=== PATIENT | male | born 1975 | race Caucasian/White ===

== ENCOUNTER → 2016-12-04 | Outpatient (CLI) | payer BC, OTHER | LOC: M SMT 15:49 | PROVIDERS: ATTEND Urology | DX: E29.1 Testicular hypofunction (principal) ==

== ENCOUNTER → 2017-03-29 | Outpatient (CLI) | payer BC, OTHER | LOC: M LAB 16:11 | PROVIDERS: ATTEND Urology | DX: E29.1 Testicular hypofunction (principal) ==

== ENCOUNTER → 2017-11-02 | Outpatient (CLI) | payer BC, OTHER ==
[2017-11-02 13:33] LABS: HEMATOCRIT 45.9 % (42.0-52.0); HEMOGLOBIN 15.9 g/dl (14.0-18.0); MEAN CORPUSCULAR HEMOGLOBIN 31.2 pg (27.0-33.0); MEAN CORPUSCULAR HGB CONC 34.6 g/dl (32.0-36.5); PLATELET COUNT, AUTOMATED 242 10^3/uL (150-450); RED CELL DISTRIBUTION WIDTH 12.2 % (11.5-14.5); WHITE BLOOD COUNT 4.7 10^3/uL (4.0-10.0)
[2017-11-02 14:00] LABS: ALBUMIN 4.5 GM/DL (3.2-5.2); ALBUMIN/GLOBULIN RATIO 1.32 (1.00-1.93); ALKALINE PHOSPHATASE 62 U/L (45-117); ALT/SGPT 40 U/L (12-78); ANION GAP 8 MEQ/L (8-16); AST/SGOT 23 U/L (7-37); BILIRUBIN,TOTAL 0.5 MG/DL (0.2-1.0); BLOOD UREA NITROGEN 15 MG/DL (7-18); CARBON DIOXIDE LEVEL 30 MEQ/L (21-32); CHLORIDE LEVEL 102 MEQ/L (98-107); CREATININE FOR GFR 0.98 MG/DL (0.70-1.30); GLOMERULAR FILTRATION RATE > 60.0 (>60); GLUCOSE, FASTING 95 MG/DL (70-100); POTASSIUM SERUM 4.9 MEQ/L (3.5-5.1); SODIUM LEVEL 140 MEQ/L (136-145); TOTAL PROTEIN 7.9 GM/DL (6.4-8.2)
[2017-11-04 00:07] LABS: PSA TOTAL 0.8 ng/mL (0.0-4.0); TESTOSTERONE FREE (DIRECT) 9.7 pg/mL (6.8-21.5)
== END ==
LOC: M SMT 09:47
DX: E29.1 Testicular hypofunction (principal); Z12.5 Encounter for screening for malignant neoplasm of prostate
CPT/HCPCS: 84403

== ENCOUNTER → 2018-02-15 | Outpatient (CLI) | payer BC, OTHER ==
[2018-02-16 17:41] LABS: TESTOSTERONE FREE (DIRECT) 14.9 pg/mL (6.8-21.5)
== END ==
LOC: M LAB 12:30
DX: E29.9 Testicular dysfunction, unspecified (principal)

== ENCOUNTER 2018-03-09 10:47 | Day surgery (SDC) | payer BC, OTHER ==
[2018-03-09] MEDS: NS 1,000 ML IV (11:00)
[2018-03-09] MEDS ORDERED: PROPOFOL 200 MG/20 ML VIAL As Ordered (12:41)
== END 2018-03-09 13:20 | disposition home or self-care (01) ==
LOC: M OPP 10:47
DX: Z12.11 Encounter for screening for malignant neoplasm of colon (principal); Z86.010 Personal history of colon polyps; K64.0 First degree hemorrhoids; K57.30 Diverticulosis of large intestine without perforation or abscess without bleeding; Z85.72 Personal history of non-Hodgkin lymphomas; Z92.21 Personal history of antineoplastic chemotherapy; E66.9 Obesity, unspecified; Z79.899 Other long term (current) drug therapy; Z80.42 Family history of malignant neoplasm of prostate
CPT/HCPCS: G0105

== ENCOUNTER → 2018-05-24 | Outpatient (CLI) | payer OTHER, BC ==
[2018-05-27 00:06] LABS: TESTOSTERONE FREE (DIRECT) 10.9 pg/mL (6.8-21.5)
== END ==
LOC: M WUC 15:58
DX: E29.1 Testicular hypofunction (principal)
CPT/HCPCS: 84403

== ENCOUNTER → 2018-09-08 | Outpatient (CLI) | payer OTHER, BC ==
[~2018-09-08] MED LIST: TESTOPEL SUBD
[2018-09-10 14:10] LABS: TESTOSTERONE FREE (DIRECT) 16.3 pg/mL (6.8-21.5)
== END ==
LOC: M WUC 14:58
PROVIDERS: ATTEND Specialist
DX: E29.1 Testicular hypofunction (principal)

== ENCOUNTER → 2018-10-06 | Outpatient (REF) | payer OTHER | LOC: M LAB REF 16:47 | PROVIDERS: ATTEND Nurse Practitioner Family | DX: L02.01 Cutaneous abscess of face (principal) ==

== ENCOUNTER → 2018-11-22 | Outpatient (CLI) | payer OTHER ==
[2018-11-22 18:27] LABS: HEMATOCRIT 45.7 % (42.0-52.0); HEMOGLOBIN 15.6 g/dl (13.5-17.5)
== END ==
LOC: M WUC 15:55
PROVIDERS: ATTEND Urology
DX: E29.1 Testicular hypofunction (principal); Z12.5 Encounter for screening for malignant neoplasm of prostate
CPT/HCPCS: 36415; 84403; 85014; 85018; G0103

== ENCOUNTER → 2019-03-02 | Outpatient (CLI) | payer OTHER ==
[2019-03-02 17:17] LABS: HEMATOCRIT 46.4 % (42.0-52.0); HEMOGLOBIN 15.8 g/dl (13.5-17.5)
[2019-03-04 10:24] LABS: TESTOSTERONE FREE (DIRECT) 8.3 pg/mL (6.8-21.5)
== END ==
LOC: M WUC 12:09
PROVIDERS: ATTEND Nurse Practitioner Family
DX: E29.1 Testicular hypofunction (principal)

== ENCOUNTER 2019-05-10 06:08 | Day surgery (SDC) | payer BC, OTHER ==
[~2019-05-10] VITALS: Ht 177.8 cm; Wt 109.3 kg
[2019-05-10] MEDS ORDERED: LIDOCAINE 1% MDV 20ML VIAL ONE (06:09)
[2019-05-10] MEDS ORDERED: AMPICILLIN SOD/SULBACTAM SOD 3 GM in D5W MINI-BAG PLUS 100 ML IV ONE (07:00)
[2019-05-10] MEDS ORDERED: LR 1,000 ML IV ONE (07:00)
[2019-05-10] MEDS ORDERED: LIDOCAINE 1% SDV INJ 30 ML VIAL As Ordered ONE (07:11)
[2019-05-10] MEDS ORDERED: BUPIVACAINE HCL 0.25% 30 ML VIAL As Ordered ONE ×2 (07:11→10:10)
[2019-05-10] MEDS ORDERED: GLYCOPYRROLATE INJ 0.2 MG/ML 2 ML VIAL As Ordered ONE (08:24)
[2019-05-10] MEDS ORDERED: ROCURONIUM BROMIDE 50 MG/5 ML VIAL As Ordered ONE (08:36)
[2019-05-10] MEDS ORDERED: KETOROLAC 60 MG/2 ML VIAL (J1885) As Ordered ONE (08:36)
[2019-05-10] MEDS ORDERED: MIDAZOLAM INJ 2 MG/2 ML VIAL (J2250) As Ordered ONE (08:36)
[2019-05-10] MEDS ORDERED: PROPOFOL 200 MG/20 ML VIAL As Ordered ONE (08:36)
[2019-05-10] MEDS ORDERED: ONDANSETRON 4MG/2ML VIAL (J2405) As Ordered ONE (08:36)
[2019-05-10] MEDS ORDERED: LIDOCAINE 2% INJ 100 MG/5 ML SDV (FOR ANES.) As Ordered ONE (08:36)
[2019-05-10] MEDS ORDERED: dexameTHASONE 4 MG/ML 1ML VIAL (J1100) As Ordered ONE (08:36)
[2019-05-10] MEDS ORDERED: ACETAMINOPHEN 1000MG 100ML IV BTL (OFIRMEV) (J0131 PER 10MG) As Ordered ONE (08:36)
[2019-05-10] MEDS ORDERED: fentaNYL 100 MCG/2 ML INJECTION (J3010) As Ordered ONE (08:36)
[2019-05-10] MEDS ORDERED: SUGAMMADEX SODIUM 500 MG/5 ML VIAL (BRIDION) As Ordered ONE (09:03)
[2019-05-10] MEDS ORDERED: BUPIVACAINE LIPOSOME/PF 1.3% 20ML VIAL (13.3MG/ML)(EXPAREL)(C9290 PER1MG) As Ordered ONE ×2 (09:24→11:05)
--- NOTE | 2019-05-10 10:23 | ROOPDOC ---
[facility] Report Of Operation Report of Operation DATE OF PROCEDURE: 05/10/19 PREPROCEDURE DIAGNOSES: Cholelithiasis, biliary colic POSTPROCEDURE DIAGNOSES: Cholelithiasis, Chronic Cholecystitis. PROCEDURE: Robotic Assisted Laparoscopic Cholecystectomy. SURGEON: Yang Barber MD [employer] NURSE: Buffy Orr NP ANESTHESIA: General Anesthesioa. ESTIMATED BLOOD LOSS: Approximately 20 mL. COMPLICATIONS: none. REMARKS: . PROCEDURE NOTE: Anesthesia reports difficult intubation, anteriorly placed trachea. Moderate amounts of omental adhesion to the underside of the gallbladder. The gallbladder takes a very prolonged course underneath the liver. It is distended, mildly thickened. Large 1.5-2 cm stone stuck at the neck to gallbladder. Critical view of safety met prior to taking the cystic artery and duct. DESCRIPTION OF PROCEDURE: Patient was given a dose Unasyn 3 g IV preoperatively for prophylaxis. He was given a dose of ICG 5 mg IV with 10 mL NS flush 45 minutes prior to the procedure. She was brought to the operating room, laid supine on the table, compression boots placed for DVT prophylaxis. General endotracheal anesthesia started. Her abdomen then prepped and draped in usual sterile fashion. We paused for a surgical timeout using both pre-incision safety checklist to verify correct patient, procedure site and additional clinical information prior to beginning the procedure. Entry to the abdomen done through a small incision at the left upper quadrant area. A Veress needle is inserted on a controlled fashion. CO2 insufflation started to pressure 15 mmHg. Using the same incision a 8 mm optical trocar was then placed under direct vision of laparoscope. The insertion site was inspected for injury and none was found. Patient was then positioned on a reverse trendelenburg position with her right side tilted up to further expose the gallbladder and gallbladder fossa and retract the bowels away from the area. I then placed 3 working ports under direct vision just to the left of the umbilicus and in a straight line at the right midclavicular area and right anterior axillary line in an oblique direction to triangulate the gallbladder and line up the instrument ports. The [employer] robotic tower was then maneuvered in place, the trochars were docked onto the robotic arms, the camera and instruments and up for the procedure. Operative findings: Her liver is noted to be smooth in contour no nodularities or lesions found. Her gallbladder is mildly thickened, moderately distended. There were loose stones visible at the neck of the gallbladder. The gallbladder itself is located slightly more subhepatically. The fundus of the gallbladder was grasped and the gallbladder was elevated superiorly exposing the neck of the gallbladder. The peritoneum overlying the area was opened up and dissected free both anteriorly and posteriorly to help with retraction of the gallbladder. The hepatocystic triangle was approached and dissected using a forced bipolar instrument and robotic hook cautery. The cystic duct was identified coming off from the neck gallbladder this was circumferentially dissected. The cystic artery was identified in its usual position medially behind a small lymph node of Calot. This was similarly circumferentially dissected off surrounding adipose tissue. We continued posterior dissection proximally at the neck of the gallbladder until a critical view of safety was achieved whereby only the previously identified duct and artery coursing through the neck the gallbladder. The lower body and neck of the gallbladder was coming off the liver plate early that the gallbladder itself seems to be just adhered at the liver plate starting at the lower body of the gallbladder. I switched views with firefly to determine and visualized the co urse of the cystic duct, likewise the common bile duct. Photodocumentation was done of the critical view of safety. At this point the cystic artery was clipped 2 times and divided. After again checking her anatomy and verifying that the previously identified cystic duct with firefly view, this was also clipped 3 times and divided (2 hemoclips downstream and one Hemoclip upstream). The rest of the gallbladder was then dissected free of the gallbladder bed using Bovie cautery. There was no bleeding at the liver bed with midway through dissection the relatively thin-walled gallbladder at the fundus had small amount of bile leaking out. The gallbladder was detached from the liver plate and placed into an Endobag. I scrubbed back in. The gallbladder was extracted from the umbilical port site with slight blunt enlargement of the trocar site using Veronika forceps. After re-insufflation I ins pected the clips and noted this to be in place. No bleeding noted at the liver bed. The abdomen was irrigated and the small amount of bile that leaked suctioned off. The abdomen was deflated all ports were removed. The umbilical fascial defect repaired with 0 Vicryl in a mattress fashion. Rest of the skin incisions closed with 4-0 Monocryl in subcuticular fashion. Dermabond was used to cover the port site incisions Patient was awakened, extubated and brought to recovery room stable. YANG BARBER MD May 10, 2019 10:23
[2019-05-10] MEDS ORDERED: KETOROLAC 30 MG/ML VIAL (J1885) IV PRN (10:30)
[2019-05-10] MEDS ORDERED: NORCO, ANEXSIA 5/325MG TABLET (HYDROcodone/ACETAMINOPHEN) PO PRN ×2 (10:30)
[2019-05-10] MEDS ORDERED: ONDANSETRON 4MG/2ML VIAL (J2405) IV PRN ×2 (10:30)
[2019-05-10] MEDS ORDERED: PROMETHAZINE INJ 25 MG/ML VIAL (J2550) IV PRN (10:30)
[2019-05-10] MEDS ORDERED: LR 1,000 ML IV SCH (10:30)
[2019-05-10] MEDS ORDERED: HYDROMORPHONE HCL 0.5 MG/ 0.5 ML SYRINGE (J1170 PER 1) IV PRN (10:30)
[2019-05-10] MEDS ORDERED: fentaNYL 100 MCG/2 ML INJECTION (J3010) IV PRN (10:30)
[2019-05-10 13:30] VITALS: BP 148/89
== END 2019-05-10 13:35 | disposition home or self-care (01) ==
LOC: M SDC 06:08
PROVIDERS: ATTEND Surgery
DX: K80.10 Calculus of gallbladder with chronic cholecystitis without obstruction (principal); Z85.72 Personal history of non-Hodgkin lymphomas; Z92.21 Personal history of antineoplastic chemotherapy
CPT/HCPCS: 47562; 88304; C9290; J0131; J1100; J1885; J2250; J2405; J3010

== ENCOUNTER → 2019-06-01 | Outpatient (CLI) | payer OTHER, BC ==
[2019-06-01 11:49] LABS: HEMOGLOBIN 15.9 g/dl (13.5-17.5)
[2019-06-03 00:06] LABS: TESTOSTERONE FREE (DIRECT) 13.2 pg/mL (6.8-21.5)
== END ==
LOC: M WUC 09:26
PROVIDERS: ATTEND Nurse Practitioner Family
DX: E29.1 Testicular hypofunction (principal); Z12.5 Encounter for screening for malignant neoplasm of prostate

== ENCOUNTER → 2019-07-04 | Outpatient (REF) | payer OTHER, BC | LOC: M SFHCPLAZ 17:20 | PROVIDERS: ATTEND Dermatology | DX: L72.0 Epidermal cyst (principal) ==

== ENCOUNTER → 2019-07-06 | Outpatient (CLI) | payer OTHER, BC | LOC: M WUC 11:15 | PROVIDERS: ATTEND Nurse Practitioner Family | DX: E29.1 Testicular hypofunction (principal) ==

== ENCOUNTER → 2019-09-25 | Outpatient (CLI) | payer OTHER, BC ==
[2019-09-25 12:18] LABS: HEMATOCRIT 48.3 % (42.0-52.0); HEMOGLOBIN 16.2 g/dl (13.5-17.5)
[2019-09-27 00:07] LABS: TESTOSTERONE FREE (DIRECT) 12.4 pg/mL (6.8-21.5)
== END ==
LOC: M WUC 10:16
PROVIDERS: ATTEND Nurse Practitioner Family
DX: E29.1 Testicular hypofunction (principal)

== ENCOUNTER → 2020-01-03 | Outpatient (CLI) | payer OTHER, BC ==
[2020-01-03 20:19] LABS: HEMATOCRIT 47.4 % (42.0-52.0); HEMOGLOBIN 16.1 g/dl (13.5-17.5)
== END ==
LOC: M WUC 15:40
PROVIDERS: ATTEND Nurse Practitioner Family
DX: E29.1 Testicular hypofunction (principal)
CPT/HCPCS: 36415; 84402; 84403; 85014; 85018; G0103

== ENCOUNTER → 2020-02-09 | Outpatient (CLI) | payer OTHER, BC ==
[2020-02-10 14:11] LABS: TESTOSTERONE FREE (DIRECT) 10.5 pg/mL (6.8-21.5)
== END ==
LOC: M WUC 09:41
PROVIDERS: ATTEND Nurse Practitioner Family
DX: E29.1 Testicular hypofunction (principal)

== ENCOUNTER → 2020-06-11 | Outpatient (CLI) | payer OTHER, BC ==
[2020-06-11 12:55] LABS: HEMATOCRIT 45.6 % (42.0-52.0); HEMOGLOBIN 15.7 g/dl (13.5-17.5)
[2020-06-12 16:09] LABS: TESTOSTERONE FREE (DIRECT) 8.6 pg/mL (6.8-21.5)
== END ==
LOC: M WUC 08:44
PROVIDERS: ATTEND Nurse Practitioner Family
DX: E29.1 Testicular hypofunction (principal)

== ENCOUNTER → 2020-08-20 | Outpatient (CLI) | payer SELFPAY | LOC: M LABSMTC 13:28 | PROVIDERS: ATTEND Pediatrics | DX: Z20.828 Contact with and (suspected) exposure to other viral communicable diseases (principal) ==

== ENCOUNTER → 2020-09-10 | Outpatient (REF) | payer OTHER | LOC: M LAB REF 12:22 | PROVIDERS: ATTEND Nurse Practitioner Adult Health | DX: R10.2 Pelvic and perineal pain (principal) ==

== ENCOUNTER → 2020-10-11 | Outpatient (CLI) | payer OTHER ==
[2020-10-11 10:02] LABS: HEMATOCRIT 46.2 % (42.0-52.0); HEMOGLOBIN 15.7 g/dl (13.5-17.5)
== END ==
LOC: M WUC 08:41
PROVIDERS: ATTEND Nurse Practitioner Family
DX: E29.1 Testicular hypofunction (principal); Z12.5 Encounter for screening for malignant neoplasm of prostate
CPT/HCPCS: 36415; 84403; 85014; 85018; G0103

== ENCOUNTER → 2021-02-10 | Outpatient (CLI) | payer OTHER ==
[2021-02-10 11:05] LABS: HEMATOCRIT 47.1 % (42.0-52.0); HEMOGLOBIN 16.2 g/dl (13.5-17.5)
== END ==
LOC: M WUC 08:22
PROVIDERS: ATTEND Nurse Practitioner Family
DX: E29.1 Testicular hypofunction (principal)

== ENCOUNTER → 2021-05-30 | Outpatient (REF) | payer OTHER | LOC: M LAB REF 17:17 | PROVIDERS: ATTEND Physician Assistant | DX: D22.5 Melanocytic nevi of trunk (principal) ==

== ENCOUNTER → 2021-06-11 | Outpatient (CLI) | payer OTHER ==
[2021-06-11 19:48] LABS: HEMOGLOBIN 15.1 g/dl (13.5-17.5)
== END ==
LOC: M WUC 15:34
PROVIDERS: ATTEND Nurse Practitioner Family
DX: E29.1 Testicular hypofunction (principal); Z12.5 Encounter for screening for malignant neoplasm of prostate

== ENCOUNTER → 2021-10-29 | Outpatient (CLI) | payer OTHER ==
[2021-10-29 19:41] LABS: HEMOGLOBIN 15.1 g/dl (13.5-17.5)
== END ==
LOC: M WUC 15:35
PROVIDERS: ATTEND Urology
DX: E29.1 Testicular hypofunction (principal)

== ENCOUNTER → 2022-02-27 | Outpatient (CLI) | payer OTHER, BC ==
[2022-02-27 09:27] LABS: HEMATOCRIT 47.4 % (42.0-52.0)
== END ==
LOC: M WUC 08:23
PROVIDERS: ATTEND Urology
DX: E29.1 Testicular hypofunction (principal)

== ENCOUNTER → 2022-07-03 | Outpatient (CLI) | payer BC, OTHER ==
[2022-07-03 16:39] LABS: BASO % 0.7 % (0.0-1.0); EOS # 0.1 10^3/uL (0.0-0.5); EOS % 0.9 % (0.0-3.0); HEMOGLOBIN 14.8 g/dl (13.5-17.5); LYMPH % 34.3 % (24.0-44.0); MEAN CORPUSCULAR HEMOGLOBIN 31.4 pg (27.0-33.0); MEAN CORPUSCULAR HGB CONC 34.4 g/dl (32.0-36.5); MEAN CORPUSCULAR VOLUME 91.3 fl (80.0-96.0); MONO # 0.4 10^3/uL (0.0-0.8); MONO % 6.5 % (2.0-8.0); NEUTROPHILS # 3.3 10^3/uL (1.5-8.5); NEUTROPHILS % 57.1 % (36.0-66.0); PLATELET COUNT, AUTOMATED 216 10^3/uL (150-450); RED BLOOD COUNT 4.71 10^6/uL (4.30-6.10); WHITE BLOOD COUNT 5.7 10^3/uL (4.0-10.0)
== END ==
LOC: M WUC 14:58
PROVIDERS: ATTEND Physician Assistant
DX: E29.1 Testicular hypofunction (principal)

== ENCOUNTER → 2022-10-30 | Outpatient (CLI) | payer BC, OTHER ==
[2022-10-30 16:37] LABS: BASO % 0.4 % (0.0-1.0); EOS # 0.1 10^3/uL (0.0-0.5); HEMATOCRIT 44.9 % (42.0-52.0); HEMOGLOBIN 15.2 g/dl (13.5-17.5); LYMPH # 2.1 10^3/uL (1.5-5.0); MEAN CORPUSCULAR HEMOGLOBIN 31.1 pg (27.0-33.0); MEAN CORPUSCULAR HGB CONC 33.9 g/dl (32.0-36.5); MEAN CORPUSCULAR VOLUME 91.8 fl (80.0-96.0); MONO # 0.5 10^3/uL (0.0-0.8); MONO % 6.9 % (2.0-8.0); NEUTROPHILS # 4.1 10^3/uL (1.5-8.5); NEUTROPHILS % 60.4 % (36.0-66.0); PLATELET COUNT, AUTOMATED 242 10^3/uL (150-450); RED BLOOD COUNT 4.89 10^6/uL (4.30-6.10); WHITE BLOOD COUNT 6.7 10^3/uL (4.0-10.0)
== END ==
LOC: M WUC 14:02
PROVIDERS: ATTEND Physician Assistant
DX: E29.1 Testicular hypofunction (principal)

== ENCOUNTER → 2023-03-10 | Outpatient (CLI) | payer BC, OTHER ==
[2023-03-10 17:28] LABS: BASO % 0.4 % (0.0-1.0); EOS # 0.1 10^3/uL (0.0-0.5); EOS % 0.7 % (0.0-3.0); HEMATOCRIT 46.1 % (42.0-52.0); HEMOGLOBIN 15.8 g/dl (13.5-17.5); LYMPH # 2.1 10^3/uL (1.5-5.0); LYMPH % 29.7 % (24.0-44.0); MEAN CORPUSCULAR HGB CONC 34.3 g/dl (32.0-36.5); MEAN CORPUSCULAR VOLUME 90.6 fl (80.0-96.0); MONO # 0.4 10^3/uL (0.0-0.8); NEUTROPHILS # 4.5 10^3/uL (1.5-8.5); NEUTROPHILS % 62.9 % (36.0-66.0); PLATELET COUNT, AUTOMATED 257 10^3/uL (150-450); RED BLOOD COUNT 5.09 10^6/uL (4.30-6.10); WHITE BLOOD COUNT 7.1 10^3/uL (4.0-10.0)
== END ==
LOC: M WUC 14:16
PROVIDERS: ATTEND Physician Assistant
DX: E29.1 Testicular hypofunction (principal)

== ENCOUNTER → 2023-07-12 | Outpatient (REF) | payer OTHER, BC ==
[2023-07-12 13:42] LABS: BASO % 0.6 % (0.0-1.0); EOS % 0.8 % (0.0-3.0); HEMATOCRIT 44.1 % (42.0-52.0); HEMOGLOBIN 15.3 g/dl (13.5-17.5); MEAN CORPUSCULAR HEMOGLOBIN 31.3 pg (27.0-33.0); MEAN CORPUSCULAR HGB CONC 34.7 g/dl (32.0-36.5); MEAN CORPUSCULAR VOLUME 90.2 fl (80.0-96.0); MONO # 0.4 10^3/uL (0.0-0.8); MONO % 8.4 % (2.0-8.0); NEUTROPHILS # 2.4 10^3/uL (1.5-8.5); PLATELET COUNT, AUTOMATED 257 10^3/uL (150-450); RED BLOOD COUNT 4.89 10^6/uL (4.30-6.10); WHITE BLOOD COUNT 4.9 10^3/uL (4.0-10.0)
== END ==
LOC: M LABWUC 12:49
PROVIDERS: ATTEND Physician Assistant
DX: E29.1 Testicular hypofunction (principal)

== ENCOUNTER 2023-10-18 12:08 | Day surgery (SDC) | payer BC, OTHER ==
[~2023-10-18] VITALS: Ht 177.8 cm; Wt 113.9 kg
[~2023-10-18 12:08] MED LIST changes: +NS 1,000 ML IV ONE; +TESTOPEL
[2023-10-18] MEDS ORDERED: propofoL 200 MG/20 ML VIAL As Ordered ONE ×2 (13:57→14:03)
[2023-10-18 14:11] VITALS: TEMP 97.9
[2023-10-18 14:25] VITALS: BP 137/75; O2SAT 94
== END 2023-10-18 14:33 | disposition home or self-care (01) ==
LOC: M OPP 12:08
PROVIDERS: ATTEND Internal Medicine Gastroenterology
DX: Z12.11 Encounter for screening for malignant neoplasm of colon (principal); Z86.010 Personal history of colon polyps; Z64.0 Problems related to unwanted pregnancy; Z79.890 Hormone replacement therapy

== ENCOUNTER → 2023-11-19 | Outpatient (CLI) | payer BC, OTHER ==
[~2023-11-19] MED LIST changes: -NS 1,000 ML IV ONE
[2023-11-19 19:00] LABS: HEMATOCRIT 42.4 % (42.0-52.0); HEMOGLOBIN 14.8 g/dl (13.5-17.5); MEAN CORPUSCULAR HEMOGLOBIN 31.6 pg (27.0-33.0); MEAN CORPUSCULAR HGB CONC 34.9 g/dl (32.0-36.5); MEAN CORPUSCULAR VOLUME 90.6 fl (80.0-96.0); PLATELET COUNT, AUTOMATED 258 10^3/uL (150-450); RED BLOOD COUNT 4.68 10^6/uL (4.30-6.10)
== END ==
LOC: M WUC 15:43
PROVIDERS: ATTEND Physician Assistant
DX: E29.1 Testicular hypofunction (principal)

== ENCOUNTER → 2024-02-02 | Outpatient (REF) | payer OTHER, BC | LOC: M LAB REF 11:49 | PROVIDERS: ATTEND Internal Medicine | DX: E83.110 Hereditary hemochromatosis (principal) ==

== ENCOUNTER → 2024-03-16 | Outpatient (REF) | payer OTHER, BC | LOC: M LAB REF 17:52 | PROVIDERS: ATTEND Surgery | DX: L72.0 Epidermal cyst (principal) ==

== ENCOUNTER → 2024-03-24 | Outpatient (CLI) | payer BC, OTHER ==
[2024-03-24 09:41] LABS: HEMOGLOBIN 15.5 g/dl (13.5-17.5); MEAN CORPUSCULAR HEMOGLOBIN 31.3 pg (27.0-33.0); MEAN CORPUSCULAR HGB CONC 34.4 g/dl (32.0-36.5); MEAN CORPUSCULAR VOLUME 90.9 fl (80.0-96.0); PLATELET COUNT, AUTOMATED 274 10^3/uL (150-450); RED BLOOD COUNT 4.95 10^6/uL (4.30-6.10); WHITE BLOOD COUNT 4.4 10^3/uL (4.0-10.0)
== END ==
LOC: M LAB 09:10
PROVIDERS: ATTEND Physician Assistant
DX: E29.1 Testicular hypofunction (principal)

== ENCOUNTER → 2024-06-30 | Outpatient (CLI) | payer BC ==
[2024-06-30 13:18] LABS: HEMATOCRIT 47.1 % (42.0-52.0); HEMOGLOBIN 15.9 g/dl (13.5-17.5); MEAN CORPUSCULAR HEMOGLOBIN 31.2 pg (27.0-33.0); MEAN CORPUSCULAR HGB CONC 33.8 g/dl (32.0-36.5); MEAN CORPUSCULAR VOLUME 92.5 fl (80.0-96.0); PLATELET COUNT, AUTOMATED 265 10^3/uL (150-450); RED BLOOD COUNT 5.09 10^6/uL (4.30-6.10); WHITE BLOOD COUNT 6.2 10^3/uL (4.0-10.0)
[2024-06-30 13:40] LABS: PSA SCREENING 3.8 NG/ML (< 4.00)
== END ==
LOC: M WUC 09:38
PROVIDERS: ATTEND Physician Assistant
DX: E29.1 Testicular hypofunction (principal)

== ENCOUNTER → 2024-10-30 | Outpatient (CLI) | payer BC ==
[2024-10-30 11:51] LABS: HEMATOCRIT 43.2 % (42.0-52.0); HEMOGLOBIN 15.1 g/dl (13.5-17.5); MEAN CORPUSCULAR HEMOGLOBIN 31.2 pg (27.0-33.0); MEAN CORPUSCULAR VOLUME 89.3 fl (80.0-96.0); PLATELET COUNT, AUTOMATED 252 10^3/uL (150-450); RED BLOOD COUNT 4.84 10^6/uL (4.30-6.10); WHITE BLOOD COUNT 5.3 10^3/uL (4.0-10.0)
[2024-10-30 12:23] LABS: PROSTATIC SPECIFIC AG MONITOR 1.09 NG/ML (< 4.00)
== END ==
LOC: M WUC 09:23
PROVIDERS: ATTEND Physician Assistant
DX: R97.20 Elevated prostate specific antigen [PSA] (principal); E29.1 Testicular hypofunction

== ENCOUNTER → 2025-02-06 | Outpatient (REF) | payer BC | LOC: M LAB REF 12:15 | PROVIDERS: ATTEND Internal Medicine | DX: E83.110 Hereditary hemochromatosis (principal) ==

== ENCOUNTER → 2025-06-18 | Outpatient (CLI) | payer BC ==
[2025-06-18 15:06] LABS: PLATELET COUNT, AUTOMATED 279 10^3/uL (150-450)
== END ==
LOC: M WUC 09:06
PROVIDERS: ATTEND Physician Assistant
DX: E29.1 Testicular hypofunction (principal)